=== PATIENT | female | born 1970 | race Caucasian/White ===

== ENCOUNTER 2020-01-21 20:19 | Emergency (ER) | payer MEDICAID ==
[~2020-01-21] VITALS: Ht 147.3 cm; Wt 49.9 kg
[2020-01-21 20:48] VITALS: BP 117/83
--- NOTE | 2020-01-21 20:49 | NUR ---
49 Y/O FEMALE PRESENTED TO ED C/O SORE THROAT AND SUBJECTIVE FEVER X 2 DAYS. PT DENIES CHEST PAIN, NAUSEA , DIARRHEA, SOB AND CHILLS. PT DENIES TAKING ANY MEDICATION FOR PAIN. PT STATES SHE JUST HURTS SWALLOWING. LUNG SOUNDS BL CLEAR. SKIN, PINK WARM AND DRY. A/O X4. PT IN TENT, NO ACUTE DISTRESS NOTED, VSS. ERMD MADE AWARE OF PT STATUS. PMH: DENIES AX: MORPHINE
[2020-01-21] MEDS ORDERED: PENICILLIN G BENZATHINE L-A 1.2 MU/2 ML SYR IM ONE (21:05)
--- NOTE | 2020-01-21 21:18 | NUR ---
COVID SWAB COLLECTED AND WALKED TO LAB.
[2020-01-21 21:48] VITALS: BP 117/83
--- NOTE | 2020-01-21 21:48 | NUR ---
Patient discharged with v/s stable. Written and verbal after care instructions given and explained. Patient alert, oriented and verbalized understanding of instructions. Ambulatory with steady gait. All questions addressed prior to discharge. ID band removed. Patient advised to follow up with PMD. Rx of TYLENOL & PENICILLIN given. Patient educated on indication of medication including possible reaction and side effects. Opportunity to ask questions provided and answered.
== END 2020-01-21 21:48 | disposition home or self-care (01) ==
LOC: MED 20:19
DX: J02.9 Acute pharyngitis, unspecified (principal); Z20.828 Contact with and (suspected) exposure to other viral communicable diseases; Z88.5 Allergy status to narcotic agent
CPT/HCPCS: 96372; 99283; J0561; U0003

== ENCOUNTER 2020-07-08 09:12 | Emergency (ER) | payer MEDICAID ==
[~2020-07-08] VITALS: Ht 149.9 cm; Wt 50.8 kg
[2020-07-08 09:15] VITALS: BP 127/61
[2020-07-08 10:02] VITALS: BP 127/61
== END 2020-07-08 10:00 | disposition home or self-care (01) ==
LOC: MED 09:12
DX: G44.209 Tension-type headache, unspecified, not intractable (principal); M54.2 Cervicalgia; M54.9 Dorsalgia, unspecified; Z88.5 Allergy status to narcotic agent
CPT/HCPCS: 99281

== ENCOUNTER 2020-08-11 18:50 | Emergency (ER) | payer MEDICAID ==
[~2020-08-11] VITALS: Ht 147.3 cm; Wt 50.8 kg
[~2020-08-11 18:50] MED LIST: ACET-8386 PO; CIPR500T4 PO; IBUP-2213 PO; ONDA8TAB87 PO
[2020-08-11 19:01] VITALS: BP 124/67
--- NOTE | 2020-08-11 19:11 | NUR ---
49 Y/O F BIB SON FROM HOME, PT STATES FOR 5 DAYS SHE HAS BEEN HAVING DIZZINESS, DOUBLE VISION, MUSCLE PAIN, PRESSURE IN THE CHEST, SOB, AND ABD PAIN. DENIES N/V/D and FEVER. PMH: ANEMIA MED: NAPROXEN (LAST DOSE 1700) ALLERGY: BEEF AND PORK (THROAT CLOSES), MORPHINE (THROAT CLOSES)
--- NOTE | 2020-08-11 19:18 | NUR ---
ERMD at bedside for examination
[2020-08-11] MEDS ORDERED: NACL 0.9% 1,000 ML IV SCH (19:40)
[2020-08-11 19:57] LABS: APPEARANCE,URINE CLEAR (CLEAR); BILIRUBIN,URINE NEGATIVE (NEGATIVE); BLOOD, URINE 3+ (NEGATIVE); COLOR,URINE YELLOW (YELLOW); LEUKOCYTE ESTERASE ,URINE 1+ (NEGATIVE); NITRITE, URINE NEGATIVE (NEGATIVE); PH,URINE 6.5 (5.0-9.0); UGLUCOSE NEGATIVE (NEGATIVE)
[2020-08-11 20:09] LABS: RBC,URINE 11-20 (MOD) /HPF (0-5)
[2020-08-11 20:10] LABS: WBC,URINE 0-5 /HPF (0-5)
[2020-08-11 20:13] LABS: ALBUMIN 4.2 g/dL (3.4-5.0); CARBON DIOXIDE 29.4 mmol/L (21-32); CREATININE 0.7 mg/dL (0.6-1.3); POTASSIUM 3.4 mmol/L (3.5-5.1); TOTAL BILIRUBIN 0.2 mg/dL (0.0-1.0)
--- NOTE | 2020-08-11 20:15 | NUR ---
Patient signed consent form for CT with contrast. ROLY Alvarez spoke with patient about procedure. Patient has no questions
[2020-08-11 20:16] LABS: BASOPHILS % (AUTO) 0.3 % (0.0-2.0); EOSINOPHILS # (AUTO) 0.1 K/uL (0-0.4); EOSINOPHILS % (AUTO) 1.1 % (0.0-4.0); HEMATOCRIT 33.9 % (36-48); HEMOGLOBIN 10.7 g/dL (12.0-16.0); MEAN CORPUSCULAR HEMOGLOBIN 23 pg (27-31); MEAN CORPUSCULAR HGB CONC 32 g/dL (33-37); MONOCYTES # (AUTO) 0.8 K/uL (0.8-1.0); MONOCYTES % (AUTO) 7.1 % (1.7-9.3); NEUTROPHILS # (AUTO) 6.9 K/uL (1.8-7.7); NEUTROPHILS % (AUTO) 63.5 % (42.2-75.2); PLATELET COUNT (AUTO) 517 K/uL (140-450); RED BLOOD CELL COUNT(AUTO) 4.58 MIL/uL (4.20-5.40); RED CELL DISTRIBUTION WIDTH 16.4 % (11.6-13.7); WHITE BLOOD COUNT (AUTO) 10.9 K/uL (4.8-10.8)
[2020-08-11 20:23] LABS: PROTHROMBIN TIME 9.6 secs (10.8-13.4)
[2020-08-11] MEDS ORDERED: PHENAZOPYRIDINE 100 MG TAB PO ONE (20:40)
--- NOTE | 2020-08-11 20:42 | NUR ---
PT TAKEN TO CT VIA WHEELCHAIR
[2020-08-11] MEDS ORDERED: cefTRIAXone 1,000 MG VIAL ONE (20:43)
--- NOTE | 2020-08-11 21:00 | NUR ---
pt back from CT. Patient hooked back onti the monitor
--- NOTE | 2020-08-11 22:05 | NUR ---
pt ambulated to the bathroom.
--- NOTE | 2020-08-11 22:07 | NUR ---
reconnected patient back onto the monitor
[2020-08-11] MEDS ORDERED: CEPH-588 PO (22:22)
[2020-08-11] MEDS ORDERED: PYR100 PO (22:22)
[2020-08-11] MEDS ORDERED: DICL1GEL19 TP (22:22)
[2020-08-11] MEDS ORDERED: ONDA-24 SL (22:22)
[2020-08-11] MEDS ORDERED: LID5T TP (22:22)
[2020-08-11 22:35] VITALS: BP 118/57
--- NOTE | 2020-08-11 22:35 | NUR ---
Patient discharged with v/s stable. Written and verbal after care instructions given and explained. Patient alert, oriented and verbalized understanding of instructions. Ambulatory with steady gait. All questions addressed prior to discharge. ID band removed. Patient advised to follow up with PMD. Rx of keflex, voltaren, lidoderm 5% patch, zofran odt, and pyridium given. Patient educated on indication of medication including possible reaction and side effects. Opportunity to ask questions provided and answered.
== END 2020-08-11 22:35 | disposition home or self-care (01) ==
LOC: MED 18:50
DX: M25.511 Pain in right shoulder (principal); M25.512 Pain in left shoulder; R07.9 Chest pain, unspecified; Z98.890 Other specified postprocedural states; Z88.5 Allergy status to narcotic agent; Z79.899 Other long term (current) drug therapy
CPT/HCPCS: 36415; 70450; 71275; 72125; 74177; 76705; 80053; 81001; 81025; 83690; 84484; 84703; 85025; 85610; 85730; 86886; 86900; 86901; 87086; 93005; 96365; 99285; J0696; J7030; Q9967

== ENCOUNTER 2020-11-03 01:14 | Emergency (ER) | payer MEDICAID ==
[~2020-11-03] VITALS: Ht 147.3 cm; Wt 52.8 kg
[~2020-11-03 01:14] MED LIST changes: +CEPH-588 PO; +DICL1GEL19 TP; +LID5T TP; +ONDA-24 SL; +PYR100 PO
[2020-11-03 01:15] VITALS: BP 128/79
--- NOTE | 2020-11-03 02:36 | NUR ---
PT AMBULATED TO BED 07
--- NOTE | 2020-11-03 02:45 | NUR ---
COVERING PRIMARY RN FOR LUNCH RELIEF. SEE COMPLETE ASSESSMENT
[2020-11-03] MEDS: IBUPROFEN 600 MG TAB PO ONE ×2 (02:48→02:51)
[2020-11-03] MEDS: METOCLOPRAMIDE 10 MG TAB PO ONE ×2 (02:49→02:51)
--- NOTE | 2020-11-03 02:50 | NUR ---
PT DECLINED MEDICATION AT BEDSIDE.
[2020-11-03] MEDS ORDERED: METO-485 PO (02:54)
[2020-11-03 03:08] VITALS: BP 128/79
--- NOTE | 2020-11-03 03:08 | NUR ---
Patient discharged with v/s stable. Written and verbal after care instructions given and explained. Patient alert, oriented and verbalized understanding of instructions. Ambulatory with steady gait. All questions addressed prior to discharge. ID band removed. Patient advised to follow up with PMD. Rx of REGLAN given. Patient educated on indication of medication including possible reaction and side effects. Opportunity to ask questions provided and answered.
== END 2020-11-03 03:08 | disposition home or self-care (01) ==
LOC: MED 01:14
DX: M79.7 Fibromyalgia (principal); G44.209 Tension-type headache, unspecified, not intractable; M54.2 Cervicalgia; Z88.5 Allergy status to narcotic agent; Z79.899 Other long term (current) drug therapy
CPT/HCPCS: 99283; J8597

== ENCOUNTER 2020-11-13 09:43 | Emergency (ER) | payer MEDICAID ==
[~2020-11-13] VITALS: Ht 152.4 cm; Wt 63.5 kg
[~2020-11-13 09:43] MED LIST changes: +METO-485 PO
[2020-11-13 09:50] VITALS: BP 121/68
--- NOTE | 2020-11-13 09:50 | NUR ---
PT BROUGHT TO BED 4 VIA [facility]
[2020-11-13] MEDS ORDERED: SODIUM CHLORIDE FLUSH 10 ML SYR IVF STA (10:00)
[2020-11-13] MEDS ORDERED: NITROGLYCERIN 0.4 MG TAB SL STA (10:00)
--- NOTE | 2020-11-13 10:07 | NUR ---
RAD AT BEDSIDE
--- NOTE | 2020-11-13 10:30 | NUR ---
50/F biba from with c/o chest pain. Per EMS, patient states she was driving and began experiencing sharp non radiating chest pain, stating she drove herself home and called 911. Patient states she was feeling episodes of shortness of breath and nausea, stating right now no chest pain, or shorntess of breath. Patient alert and oriented x4 answering questions appropriately, placed in gown on bedside radiology transporter. ERMD bedside.
[2020-11-13] MEDS ORDERED: LORazepam 0.5 MG TAB PO ONE (10:55)
[2020-11-13 11:12] LABS: BASOPHILS % (AUTO) 0.5 % (0.0-2.0); EOSINOPHILS % (AUTO) 0.4 % (0.0-4.0); HEMATOCRIT 39.6 % (36-48); HEMOGLOBIN 13.4 g/dL (12.0-16.0); LYMPHOCYTES # (AUTO) 1.6 K/uL (2.5-16.5); LYMPHOCYTES % (AUTO) 22.2 % (20.5-51.1); MEAN CORPUSCULAR HEMOGLOBIN 29 pg (27-31); MEAN CORPUSCULAR HGB CONC 34 g/dL (33-37); MEAN CORPUSCULAR VOLUME 85.1 fL (80-94); MONOCYTES # (AUTO) 0.3 K/uL (0.8-1.0); MONOCYTES % (AUTO) 4.3 % (1.7-9.3); NEUTROPHILS # (AUTO) 5.3 K/uL (1.8-7.7); NEUTROPHILS % (AUTO) 72.6 % (42.2-75.2); PLATELET COUNT (AUTO) 346 K/uL (140-450); RED BLOOD CELL COUNT(AUTO) 4.65 MIL/uL (4.20-5.40); RED CELL DISTRIBUTION WIDTH 16.8 % (11.6-13.7); WHITE BLOOD COUNT (AUTO) 7.3 K/uL (4.8-10.8)
[2020-11-13 11:24] LABS: ALBUMIN 3.9 g/dL (3.4-5.0); ANION GAP 11.3 (8-16); CARBON DIOXIDE 28.4 mmol/L (21-32); CREATININE 0.7 mg/dL (0.6-1.3); POTASSIUM 3.7 mmol/L (3.5-5.1); TOTAL BILIRUBIN 0.4 mg/dL (0.0-1.0)
--- NOTE | 2020-11-13 12:42 | NUR ---
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 VSS.
--- NOTE | 2020-11-13 13:50 | NUR ---
Patient discharged with v/s stable. Written and verbal after care instructions given and explained. Patient verbalized understanding. Ambulatory with steady gait. All questions addressed prior to discharge. Advised to follow up with PMD.
[2020-11-13 13:52] VITALS: BP 132/75
== END 2020-11-13 13:50 | disposition home or self-care (01) ==
LOC: MED 09:43
DX: R07.9 Chest pain, unspecified (principal); R06.00 Dyspnea, unspecified; Z88.5 Allergy status to narcotic agent; Z79.899 Other long term (current) drug therapy
CPT/HCPCS: 36415; 71045; 80053; 84484; 85025; 93005; 99285

== ENCOUNTER 2021-06-16 01:30 | Emergency (ER) | payer MEDICAID ==
[~2021-06-16] VITALS: Ht 147.3 cm; Wt 55.5 kg
[~2021-06-16 01:30] MED LIST changes: +ONDA-188 SL; -ONDA-24 SL
[2021-06-16 01:44] VITALS: BP 116/76
--- NOTE | 2021-06-16 02:02 | NUR ---
PT AMBULATED TO BED #6
--- NOTE | 2021-06-16 02:33 | NUR ---
SEEN AND EXAMINED BY ROLY WITH ORDERS AND CARRIED OUT.
[2021-06-16] MEDS ORDERED: CYCL-711 PO (02:37)
[2021-06-16] MEDS ORDERED: NAPR-54 PO (02:37)
[2021-06-16] MEDS ORDERED: KETOROLAC 30 MG/ML VIAL IM ONE (02:40)
--- NOTE | 2021-06-16 02:40 | NUR ---
REFUSES PAIN MEDICATION, ERMD NOTED , MAYBE LATER
--- NOTE | 2021-06-16 03:03 | NUR ---
SENT FOR XRAY VIA W/C WITH THE [facility].
--- NOTE | 2021-06-16 03:30 | NUR ---
RESULT BACK AND NOTED BY ERMD AND FOR D/C
[2021-06-16 03:40] VITALS: BP 121/79
--- NOTE | 2021-06-16 03:40 | NUR ---
Patient discharged with v/s stable. Written and verbal after care instructions given and explained. Patient alert, oriented and verbalized understanding of instructions. Ambulatory with steady gait. All questions addressed prior to discharge. ID band removed. Patient advised to follow up with PMD. Rx of NAPROSYN, FLEXERIL given. Patient educated on indication of medication including possible reaction and side effects. Opportunity to ask questions provided and answered.
== END 2021-06-16 03:40 | disposition home or self-care (01) ==
LOC: MED 01:30
DX: M54.50 Low back pain, unspecified (principal); Z88.5 Allergy status to narcotic agent; Z79.899 Other long term (current) drug therapy; Z98.890 Other specified postprocedural states
CPT/HCPCS: 72100; 93005; 99283; J1885

== ENCOUNTER 2021-08-07 06:27 | Emergency (ER) | payer MEDICAID ==
[~2021-08-07] VITALS: Ht 147.3 cm; Wt 54.4 kg
[~2021-08-07 06:27] MED LIST changes: +CYCL-711 PO; +NAPR-54 PO
[2021-08-07 06:34] VITALS: BP 105/65
[2021-08-07] MEDS ORDERED: ACETAMINOPHEN EXTRA STRENGTH 500 MG TAB PO ONE (06:45)
[2021-08-07] MEDS ORDERED: ONDANSETRON 4 MG ODT PO ONE (06:45)
[2021-08-07] MEDS ORDERED: DICYCLOMINE HCL LIQUID 20 MG, ALUMINUM HYD/MAG/SIMETHICONE 30 ML, LIDOCAINE VISCOUS 2% ... PO ONE ×3 (06:45)
--- NOTE | 2021-08-07 07:07 | NUR ---
CXR at bedside.
[2021-08-07] MEDS ORDERED: ALUMINUM HYD/MAG/SIMETHICONE 30 ML UDC ONE (07:35)
[2021-08-07] MEDS ORDERED: DICYCLOMINE HCL LIQUID 10 MG/5 ML UDC ONE (07:35)
[2021-08-07 07:38] LABS: BASOPHILS % (AUTO) 0.4 % (0.0-2.0); EOSINOPHILS # (AUTO) 0.1 K/uL (0-0.4); EOSINOPHILS % (AUTO) 1.8 % (0.0-4.0); HEMOGLOBIN 13.6 g/dL (12.0-16.0); LYMPHOCYTES # (AUTO) 2.6 K/uL (2.5-16.5); LYMPHOCYTES % (AUTO) 43.2 % (20.5-51.1); MEAN CORPUSCULAR HEMOGLOBIN 29 pg (27-31); MEAN CORPUSCULAR HGB CONC 34 g/dL (33-37); MONOCYTES # (AUTO) 0.4 K/uL (0.8-1.0); NEUTROPHILS # (AUTO) 2.9 K/uL (1.8-7.7); NEUTROPHILS % (AUTO) 48.6 % (42.2-75.2); PLATELET COUNT (AUTO) 290 K/uL (140-450); RED BLOOD CELL COUNT(AUTO) 4.65 MIL/uL (4.20-5.40); RED CELL DISTRIBUTION WIDTH 14.2 % (11.6-13.7); WHITE BLOOD COUNT (AUTO) 6.1 K/uL (4.8-10.8)
[2021-08-07] MEDS ORDERED: FAMO-90 PO (07:55)
[2021-08-07] MEDS ORDERED: NITR100C7 PO (07:55)
[2021-08-07] MEDS ORDERED: MAG355OR2 PO (07:55)
[2021-08-07 08:01] LABS: ALBUMIN 3.9 g/dL (3.4-5.0); ANION GAP 9.1 (8-16); ASPARTATE AMINOTRANSFERASE 24 U/L (15-37); CARBON DIOXIDE 28.3 mmol/L (21-32); CHLORIDE 105 mmol/L (98-107); CREATININE 0.6 mg/dL (0.6-1.3); GFR ARICAN-AMERICAN 135 mL/min (>90); GLUCOSE 95 mg/dL (74-106); LIPASE 279 U/L (73-393); POTASSIUM 4.4 mmol/L (3.5-5.1); SODIUM SERUM 138 mmol/L (136-145); TOTAL BILIRUBIN 0.3 mg/dL (0.0-1.0); UREA NITROGEN, BLOOD 17 mg/dL (7-18)
--- NOTE | 2021-08-07 08:05 | NUR ---
50 Y/O FEMALE BIB SELF C/O INTERMITTENT EPIGASTRICT PAIN WHICH RADIATES TO THE CHEST. PAIN RATED 6/10. PT STATES SHE HAS ALSO HAD INTERMITTENT NAUSEA. PT DENIES EXERTIONAL CHEST PAIN AND IS ABLE TO SPEAK IN COMPLETE SENTENCES. PT DENIES FEVER/CHILLS. DENIES SOB. PT DENIES TAKING ANY MEDICATIONS PRIOR TO ARRIVAL. BED LOCKED IN LOWEST POSITION, BED RAIL X1. PMH: DENIES NKA MEDS: DENIES
[2021-08-07 08:14] VITALS: BP 110/78
--- NOTE | 2021-08-07 08:15 | NUR ---
Patient discharged with v/s stable. Written and verbal after care instructions given and explained. Patient alert, oriented and verbalized understanding of instructions. Ambulatory with steady gait. All questions addressed prior to discharge. ID band removed. Patient advised to follow up with PMD. Rx of PEPCID, MAALOX MAXIMUM STRENGTH, MACROBID given. Patient educated on indication of medication including possible reaction and side effects. Opportunity to ask questions provided and answered.
== END 2021-08-07 08:13 | disposition home or self-care (01) ==
LOC: MED 06:27
DX: N39.0 Urinary tract infection, site not specified (principal); R07.9 Chest pain, unspecified; Z79.899 Other long term (current) drug therapy; Z79.2 Long term (current) use of antibiotics; Z79.1 Long term (current) use of non-steroidal anti-inflammatories (NSAID); Z79.891 Long term (current) use of opiate analgesic; Z88.5 Allergy status to narcotic agent; Z91.018 Allergy to other foods
CPT/HCPCS: 36415; 71045; 80053; 81002; 81025; 83690; 84484; 85025; 93005; 99285; Q0092; Q0162

== ENCOUNTER 2021-09-11 14:25 | Emergency (ER) | payer MEDICAID ==
[~2021-09-11] VITALS: Ht 147.3 cm; Wt 54.5 kg
[~2021-09-11 14:25] MED LIST changes: +FAMO-90 PO; +MAG355OR2 PO; +NITR100C7 PO
[2021-09-11 14:57] VITALS: BP 119/72
--- NOTE | 2021-09-11 15:45 | NUR ---
50 Y/O FEMALE C/O L RIB PAIN RADIATING TO CHEST, DIZZINESS AND FATIGUE THIS MORNING. DENIES ANYONE SICK AT HOME. +CHILLS. DENIES FEVER/N/V. PMH:DENIES ALLERGIES: MORPHINE, BEEF, PORK
[2021-09-11 16:56] LABS: BASOPHILS % (AUTO) 0.4 % (0.0-2.0); EOSINOPHILS # (AUTO) 0.1 K/uL (0-0.4); EOSINOPHILS % (AUTO) 1.6 % (0.0-4.0); HEMATOCRIT 40.7 % (36-48); HEMOGLOBIN 13.8 g/dL (12.0-16.0); LYMPHOCYTES % (AUTO) 32.4 % (20.5-51.1); MEAN CORPUSCULAR HEMOGLOBIN 30 pg (27-31); MEAN CORPUSCULAR HGB CONC 34 g/dL (33-37); MEAN CORPUSCULAR VOLUME 87.3 fL (80-94); MONOCYTES # (AUTO) 0.4 K/uL (0.8-1.0); MONOCYTES % (AUTO) 6.6 % (1.7-9.3); NEUTROPHILS # (AUTO) 3.6 K/uL (1.8-7.7); PLATELET COUNT (AUTO) 287 K/uL (140-450); RED BLOOD CELL COUNT(AUTO) 4.66 MIL/uL (4.20-5.40); RED CELL DISTRIBUTION WIDTH 14.4 % (11.6-13.7); WHITE BLOOD COUNT (AUTO) 6.1 K/uL (4.8-10.8)
[2021-09-11 17:13] LABS: ANION GAP 9.2 (8-16); CARBON DIOXIDE 30.1 mmol/L (21-32); CREATININE 0.8 mg/dL (0.6-1.3); POTASSIUM 4.3 mmol/L (3.5-5.1)
[2021-09-11 18:52] VITALS: BP 115/60
== END 2021-09-11 18:52 | disposition home or self-care (01) ==
LOC: MED 14:25
DX: R07.81 Pleurodynia (principal); R07.89 Other chest pain; Z88.5 Allergy status to narcotic agent
CPT/HCPCS: 36415; 71045; 80048; 81002; 81025; 84484; 85025; 93005; 99285; Q0092

== ENCOUNTER 2021-11-03 11:13 | Emergency (ER) | payer MEDICAID ==
--- NOTE | 2021-11-03 12:00 | NUR ---
PATIENT LEFT WITHOUT BEING SEEN BY DR. SCHAEFFER. NO FURTHER CARE PROVIDED FOR PATIENT.
--- NOTE | 2021-11-03 12:00 | NUR ---
FIRST ATTEMPT TO CALL PT BACK TO BE TRIAGED, NO RESPONSE.
--- NOTE | 2021-11-03 12:15 | NUR ---
SECOND ATTEMPT TO CALL PT BACK TO BE TRIAGED, NO RESPONSE.
--- NOTE | 2021-11-03 12:36 | NUR ---
THIRD ATTEMPT TO CALL PT BACK TO BE TRIAGED, NO RESPONSE.
[2021-11-04] MEDS ORDERED: ONDA-188 PO (11:08)
[2021-11-04] MEDS ORDERED: MECL-303 PO (11:08)
== END 2021-11-03 12:00 | disposition left against medical advice (07) ==
LOC: MED 11:13
DX: M79.10 Myalgia, unspecified site (principal); Z53.21 Procedure and treatment not carried out due to patient leaving prior to being seen by health care provider

== ENCOUNTER 2021-11-04 09:39 | Emergency (ER) | payer MEDICAID ==
[~2021-11-04] VITALS: Ht 147.3 cm; Wt 56.7 kg
[2021-11-04 09:49] VITALS: BP 131/76
--- NOTE | 2021-11-04 09:54 | NUR ---
Patient ambulated to bed 4 with steady gait.
--- NOTE | 2021-11-04 09:58 | NUR ---
Patient ambulated to restroom with steady gait.
--- NOTE | 2021-11-04 10:23 | NUR ---
51 y/o female bib self with c/o chest pressure x yesterday. Patient reports chest pain with a 7/10 pressure feeling. Denies SOB. Patient has not felt this before. Patient is also complaining of numbness from the back of her head to base of the neck x yesterday. Patient feels like there are ants crawling on her neck and head. Patient reports being dizzy. Patient denies being around anyone who is sick. Medical History:Denies ALLERGY: MORPHONE
--- NOTE | 2021-11-04 10:55 | NUR ---
Dr. Babin evaluating patient at bedside.
[2021-11-04] MEDS ORDERED: ONDA-188 PO (11:08)
[2021-11-04] MEDS ORDERED: MECL-303 PO (11:08)
[2021-11-04 11:36] VITALS: BP 97/65
--- NOTE | 2021-11-04 11:36 | NUR ---
Patient discharged with v/s stable. Written and verbal after care instructions given. Patient alert, oriented and verbalized understanding of instructions. Ambulatory with steady gait. All questions addressed prior to discharge. ID band removed. Patient advised to follow up with PMD. Rx of Meclizine and Zofran given. Opportunity to ask questions provided and answered.
--- NOTE | 2021-11-04 11:37 | NUR ---
The patient's care was reviewed and supervised by Malgorzata Martinez RN.
== END 2021-11-04 11:36 | disposition home or self-care (01) ==
LOC: MED 09:39
DX: R42 Dizziness and giddiness (principal); R51.9 Headache, unspecified; R06.02 Shortness of breath; Z88.5 Allergy status to narcotic agent; Z79.899 Other long term (current) drug therapy; Z98.890 Other specified postprocedural states
CPT/HCPCS: 81002; 81025; 93005; 99283

== ENCOUNTER 2021-11-18 13:18 | Emergency (ER) | payer MEDICAID ==
[~2021-11-18 13:18] MED LIST changes: +MECL-303 PO; +ONDA-188 PO
--- NOTE | 2021-11-18 13:37 | NUR ---
CALLED TO TRIAGE NO ANSWER
--- NOTE | 2021-11-18 13:51 | NUR ---
SECOND NO ANSWER TO TRIAGE
--- NOTE | 2021-11-18 14:08 | NUR ---
3RD NO ANSWER TO TRIAGE
--- NOTE | 2021-11-18 14:09 | NUR ---
PATIENT LEFT WITHOUT BEING SEEN BY DR. WATKINS. NO FURTHER CARE PROVIDED FOR PATIENT.
== END 2021-11-18 13:37 | disposition left against medical advice (07) ==
LOC: MED 13:18
DX: R51.9 Headache, unspecified (principal); Z53.21 Procedure and treatment not carried out due to patient leaving prior to being seen by health care provider

== ENCOUNTER 2022-01-01 15:01 | Emergency (ER) | payer MEDICAID ==
[~2022-01-01] VITALS: Ht 147.3 cm; Wt 70.3 kg
[2022-01-01 15:08] VITALS: BP 153/76
--- NOTE | 2022-01-01 15:15 | NUR ---
51/F WHEELCHAIR ASSISTED C/O CHEST PAIN RADIATING TO LEFT ARM ACCOMPANIED BY NAUSEA AND DIZZINESS. PT ALSO STATES ABD PAIN AND DIARRHEA ACCOMPANIED BY FEVER RECENTLY. PT STATES BEING EVALUATED AT [facility] ER AND WAS DC. AAO4, AMBULATORY, EKG DONE AT BEDSIDE AND READ BY DR HESTER. VITALS STABLE. IV ESTABLISHED TO RIGHT AC 20G. URINE COLLECTED. ALLERGY: MORPHINE PMH: DENIES
[2022-01-01] MEDS ORDERED: NACL 0.9% 1,000 ML IV ONE (15:25)
[2022-01-01 15:26] VITALS: BP 153/78
[2022-01-01] MEDS ORDERED: IBUP-2213 PO (15:31)
[2022-01-01] MEDS ORDERED: LOPE-289 PO (15:31)
[2022-01-01] MEDS: KETOROLAC 30 MG/ML VIAL IVP ONE ×2 (15:31→15:34)
[2022-01-01] MEDS: ONDANSETRON 4 MG/2 ML VIAL IVP ONE ×2 (15:31→15:34)
[2022-01-01] MEDS ORDERED: ONDA8TAB87 PO (15:31)
--- NOTE | 2022-01-01 15:34 | NUR ---
PT REFUSED TORADOL AND ZOFRAN IV. ERMD AWARE
[2022-01-01] MEDS ORDERED: CIPR500T4 PO (15:39)
--- NOTE | 2022-01-01 16:00 | NUR ---
Patient discharged with v/s stable. Written and verbal after care instructions given and explained. Patient verbalized understanding. Carried with steady gait. All questions addressed prior to discharge. Advised to follow up with PMD.
== END 2022-01-01 16:00 | disposition home or self-care (01) ==
LOC: MED 15:01
DX: N39.0 Urinary tract infection, site not specified (principal); R11.2 Nausea with vomiting, unspecified; R19.7 Diarrhea, unspecified; Z88.5 Allergy status to narcotic agent; Z79.899 Other long term (current) drug therapy; Z98.890 Other specified postprocedural states
CPT/HCPCS: 81002; 81025; 93005; 99283; J1885; J2405; J7030

== ENCOUNTER 2022-01-17 11:08 | Emergency (ER) | payer MEDICAID ==
[~2022-01-17] VITALS: Ht 143.5 cm; Wt 58.7 kg
[~2022-01-17 11:08] MED LIST changes: +LOPE-289 PO
[2022-01-17 11:15] VITALS: BP 136/92
--- NOTE | 2022-01-17 11:23 | NUR ---
PT AMB TO BED 6.
--- NOTE | 2022-01-17 11:55 | NUR ---
IV started, blood work obtained. Walked to lab.
--- NOTE | 2022-01-17 12:17 | NUR ---
51 y/o female bib self with c/o chest pain x today. Patient has pressure pain that radiates to her Left side of neck and left arm. Patient states her left arm is numb. Patient is dizzy. Denies any nausea, fever or vomiting. Denies taking medication for pain. Medical History: Denies ALLERGY: MORPHINE
[2022-01-17 12:23] LABS: BASOPHILS % (AUTO) 0.4 % (0.0-2.0); EOSINOPHILS % (AUTO) 0.3 % (0.0-4.0); HEMATOCRIT 43.1 % (36-48); HEMOGLOBIN 14.6 g/dL (12.0-16.0); LYMPHOCYTES # (AUTO) 1.5 K/uL (2.5-16.5); LYMPHOCYTES % (AUTO) 16.4 % (20.5-51.1); MEAN CORPUSCULAR HEMOGLOBIN 31 pg (27-31); MEAN CORPUSCULAR HGB CONC 34 g/dL (33-37); MEAN CORPUSCULAR VOLUME 89.6 fL (80-94); MONOCYTES # (AUTO) 0.3 K/uL (0.8-1.0); MONOCYTES % (AUTO) 2.8 % (1.7-9.3); NEUTROPHILS # (AUTO) 7.4 K/uL (1.8-7.7); NEUTROPHILS % (AUTO) 80.1 % (42.2-75.2); PLATELET COUNT (AUTO) 322 K/uL (140-450); RED BLOOD CELL COUNT(AUTO) 4.81 MIL/uL (4.20-5.40); RED CELL DISTRIBUTION WIDTH 13.2 % (11.6-13.7); WHITE BLOOD COUNT (AUTO) 9.2 K/uL (4.8-10.8)
[2022-01-17 12:32] LABS: ALBUMIN 3.7 g/dL (3.4-5.0); CARBON DIOXIDE 26.6 mmol/L (21-32); CREATININE 0.6 mg/dL (0.6-1.3); POTASSIUM 3.6 mmol/L (3.5-5.1); TOTAL BILIRUBIN 0.4 mg/dL (0.0-1.0)
--- NOTE | 2022-01-17 12:34 | NUR ---
X-Ray at bedside.
[2022-01-17 12:38] LABS: APPEARANCE,URINE CLEAR (CLEAR); BILIRUBIN,URINE NEGATIVE (NEGATIVE); BLOOD, URINE 3+ (NEGATIVE); COLOR,URINE YELLOW (YELLOW); LEUKOCYTE ESTERASE ,URINE TRACE (NEGATIVE); NITRITE, URINE NEGATIVE (NEGATIVE); PH,URINE 7.5 (5.0-9.0); UGLUCOSE NEGATIVE (NEGATIVE)
[2022-01-17 12:52] LABS: RBC,URINE 0-5 /HPF (0-5)
--- NOTE | 2022-01-17 12:57 | NUR ---
Dr. Rivas evaluating patient at bedside.
[2022-01-17] MEDS ORDERED: DICYCLOMINE HCL LIQUID 20 MG, ALUMINUM HYD/MAG/SIMETHICONE 30 ML, LIDOCAINE VISCOUS 2% ... PO ONE ×3 (13:05)
[2022-01-17] MEDS ORDERED: NACL 0.9% 1,000 ML IV ONE (13:05)
[2022-01-17] MEDS ORDERED: FAMOTIDINE 20 MG/2 ML VIAL IVP ONE (13:05)
[2022-01-17] MEDS ORDERED: ONDANSETRON 4 MG/2 ML VIAL IVP ONE (13:05)
[2022-01-17] MEDS ORDERED: ALUMINUM HYD/MAG/SIMETHICONE 30 ML UDC ONE (13:10)
[2022-01-17] MEDS ORDERED: DICYCLOMINE HCL LIQUID 10 MG/5 ML UDC ONE (13:11)
[2022-01-17] MEDS ORDERED: cephALEXin 500 MG CAP PO ONE (14:20)
[2022-01-17] MEDS ORDERED: MECL-303 PO (14:24)
[2022-01-17] MEDS ORDERED: CEPH-588 PO (14:24)
[2022-01-17] MEDS ORDERED: BEN10 PO (14:24)
[2022-01-17] MEDS ORDERED: ONDA-188 PO (14:24)
[2022-01-17] MEDS ORDERED: OMEP40EC23 PO (14:26)
--- NOTE | 2022-01-17 15:24 | NUR ---
Patient was offered a snack.
[2022-01-17] MEDS ORDERED: cephALEXin 500 MG CAP ONE (15:29)
[2022-01-17 16:00] VITALS: BP 103/68
--- NOTE | 2022-01-17 16:00 | NUR ---
Patient discharged with v/s stable. Written and verbal after care instructions given. Patient alert, oriented and verbalized understanding of instructions. Ambulatory with steady gait. All questions addressed prior to discharge. ID band removed. Patient advised to follow up with PMD. Rx of Bentyl, Keflex, Antivert, Prilosec and Zofran given. Opportunity to ask questions provided and answered.
--- NOTE | 2022-01-17 16:01 | NUR ---
Chart checked and completed. The patient's care was reviewed and supervised by Wilda Hough RN.
== END 2022-01-17 16:00 | disposition home or self-care (01) ==
LOC: MED 11:08
DX: K21.9 Gastro-esophageal reflux disease without esophagitis (principal); N39.0 Urinary tract infection, site not specified; H81.13 Benign paroxysmal vertigo, bilateral; Z88.5 Allergy status to narcotic agent; Z98.890 Other specified postprocedural states
CPT/HCPCS: 36415; 71045; 80053; 81001; 81025; 84484; 85025; 85379; 87086; 93005; 96360; 96361; 99285; J2405; J7030; Q0092; J3490

== ENCOUNTER 2022-01-28 09:59 | Emergency (ER) | payer MEDICAID ==
[~2022-01-28] VITALS: Ht 152.4 cm; Wt 60.8 kg
[~2022-01-28 09:59] MED LIST changes: +BEN10 PO; +OMEP40EC23 PO
--- NOTE | 2022-01-28 10:04 | NUR ---
Patient ambulated to bed 4 with steady gait.
[2022-01-28 10:05] VITALS: BP 137/84
[2022-01-28] MEDS ORDERED: DICYCLOMINE HCL LIQUID 20 MG, ALUMINUM HYD/MAG/SIMETHICONE 30 ML, LIDOCAINE VISCOUS 2% ... PO ONE ×3 (10:20)
[2022-01-28] MEDS ORDERED: DICYCLOMINE HCL LIQUID 10 MG/5 ML UDC ONE (10:22)
[2022-01-28] MEDS ORDERED: ALUMINUM HYD/MAG/SIMETHICONE 30 ML UDC ONE (10:22)
--- NOTE | 2022-01-28 10:25 | NUR ---
51 y/o female bib self, c/o epigastric burning radiates to mid chest and worsens with eating for 3 months. pt is also c/o dysuria and chills. pt denies vomiting, diarrhea, hematuria, fever, sore throat, cough, sob. a&ox4, french speaking, ambulates with steady gait. pmh: denies allergy: morphine, beef, pork med: denies
--- NOTE | 2022-01-28 10:34 | NUR ---
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
--- NOTE | 2022-01-28 10:34 | NUR ---
X-Ray at bedside.
[2022-01-28 10:59] LABS: APPEARANCE,URINE CLEAR (CLEAR); BILIRUBIN,URINE NEGATIVE (NEGATIVE); BLOOD, URINE TRACE-I (NEGATIVE); COLOR,URINE YELLOW (YELLOW); LEUKOCYTE ESTERASE ,URINE NEGATIVE (NEGATIVE); NITRITE, URINE NEGATIVE (NEGATIVE); PH,URINE 7.5 (5.0-9.0); UGLUCOSE NEGATIVE (NEGATIVE)
[2022-01-28 11:15] LABS: BASOPHILS % (AUTO) 0.4 % (0.0-2.0); EOSINOPHILS # (AUTO) 0.1 K/uL (0-0.4); EOSINOPHILS % (AUTO) 2.1 % (0.0-4.0); HEMATOCRIT 42.3 % (36-48); HEMOGLOBIN 14.4 g/dL (12.0-16.0); LYMPHOCYTES % (AUTO) 30.7 % (20.5-51.1); MEAN CORPUSCULAR HEMOGLOBIN 30 pg (27-31); MEAN CORPUSCULAR HGB CONC 34 g/dL (33-37); MONOCYTES # (AUTO) 0.4 K/uL (0.8-1.0); NEUTROPHILS % (AUTO) 60.8 % (42.2-75.2); PLATELET COUNT (AUTO) 277 K/uL (140-450); RED BLOOD CELL COUNT(AUTO) 4.75 MIL/uL (4.20-5.40); RED CELL DISTRIBUTION WIDTH 13.2 % (11.6-13.7); WHITE BLOOD COUNT (AUTO) 6.6 K/uL (4.8-10.8)
[2022-01-28 11:20] LABS: WBC,URINE 0-5 /HPF (0-5)
[2022-01-28 11:25] LABS: ALBUMIN 3.7 g/dL (3.4-5.0); ANION GAP 9.3 (8-16); ASPARTATE AMINOTRANSFERASE 26 U/L (15-37); CARBON DIOXIDE 31.8 mmol/L (21-32); CHLORIDE 103 mmol/L (98-107); CREATININE 0.6 mg/dL (0.6-1.3); GFR ARICAN-AMERICAN 134 mL/min (>90); GLUCOSE 115 mg/dL (74-106); LIPASE 246 U/L (73-393); POTASSIUM 4.1 mmol/L (3.5-5.1); SODIUM SERUM 140 mmol/L (136-145); TOTAL BILIRUBIN 0.2 mg/dL (0.0-1.0); UREA NITROGEN, BLOOD 13 mg/dL (7-18)
[2022-01-28] MEDS ORDERED: FAMO-92 PO (11:36)
[2022-01-28] MEDS ORDERED: SIME125T38 PO (11:36)
[2022-01-28 12:23] VITALS: BP 123/74
--- NOTE | 2022-01-28 12:23 | NUR ---
Patient discharged with v/s stable. Written and verbal after care instructions given and explained. Patient alert, oriented and verbalized understanding of instructions. Ambulatory with steady gait. All questions addressed prior to discharge. ID band removed. Patient advised to follow up with PMD. Rx of famotidine, mylanta (sent) given. Patient educated on indication of medication including possible reaction and side effects. Opportunity to ask questions provided and answered. copy of labs and work note given
== END 2022-01-28 12:23 | disposition home or self-care (01) ==
LOC: MED 09:59
DX: K29.70 Gastritis, unspecified, without bleeding (principal); Z88.5 Allergy status to narcotic agent
CPT/HCPCS: 36415; 71045; 80053; 81001; 81025; 83690; 84484; 85025; 87086; 93005; 99285

== ENCOUNTER 2022-02-05 16:43 | Emergency (ER) | payer MEDICAID ==
[~2022-02-05] VITALS: Ht 142.2 cm; Wt 59.4 kg
[~2022-02-05 16:43] MED LIST changes: +FAMO-92 PO; +SIME125T38 PO
[2022-02-05 16:50] VITALS: BP 147/47
--- NOTE | 2022-02-05 17:00 | NUR ---
PT AMBULATED TO BED. PLACED IN GOWN AND MONITOR.
--- NOTE | 2022-02-05 17:10 | NUR ---
51/F WALKED IN C/O CHEST PAIN RADIATING TO BACK AND RIGHT ARM ONSET 1 HR . DENIES DIZZINESS OR SYNCOPE. 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 ALLERGY: MORPHINE PMH: DENIES
--- NOTE | 2022-02-05 17:30 | NUR ---
BLOOD DRAWN AND SENT TO LAB
--- NOTE | 2022-02-05 17:36 | NUR ---
IV ESTABLISHED TO RIGHT AC WITH 20G.
[2022-02-05] MEDS ORDERED: ALUMINUM HYD/MAG/SIMETHICONE 30 ML UDC PO ONE (17:50)
[2022-02-05] MEDS ORDERED: NACL 0.9% 1,000 ML IV ONE (17:50)
[2022-02-05] MEDS ORDERED: FAMOTIDINE 20 MG/2 ML VIAL IVP ONE (17:50)
[2022-02-05 17:55] LABS: BASOPHILS # (AUTO) 0.1 K/uL (0.00-0.22); BASOPHILS % (AUTO) 0.5 % (0.0-2.0); EOSINOPHILS # (AUTO) 0.2 K/uL (0-0.4); EOSINOPHILS % (AUTO) 1.6 % (0.0-4.0); HEMATOCRIT 38.9 % (36-48); HEMOGLOBIN 13.5 g/dL (12.0-16.0); LYMPHOCYTES # (AUTO) 3.7 K/uL (2.5-16.5); LYMPHOCYTES % (AUTO) 28.9 % (20.5-51.1); MEAN CORPUSCULAR HEMOGLOBIN 30 pg (27-31); MEAN CORPUSCULAR HGB CONC 35 g/dL (33-37); MEAN CORPUSCULAR VOLUME 87.4 fL (80-94); MONOCYTES # (AUTO) 0.7 K/uL (0.8-1.0); MONOCYTES % (AUTO) 5.7 % (1.7-9.3); NEUTROPHILS % (AUTO) 63.3 % (42.2-75.2); PLATELET COUNT (AUTO) 335 K/uL (140-450); RED BLOOD CELL COUNT(AUTO) 4.46 MIL/uL (4.20-5.40); RED CELL DISTRIBUTION WIDTH 12.7 % (11.6-13.7); WHITE BLOOD COUNT (AUTO) 12.6 K/uL (4.8-10.8)
[2022-02-05 18:13] LABS: ALBUMIN 3.6 g/dL (3.4-5.0); ANION GAP 12.5 (8-16); CREATININE 0.8 mg/dL (0.6-1.3); POTASSIUM 3.5 mmol/L (3.5-5.1); TOTAL BILIRUBIN 0.2 mg/dL (0.0-1.0)
--- NOTE | 2022-02-05 18:30 | NUR ---
PT REFUSED PEPCID IV, STATING SHE DOES NOT WISH TO TAKE ANY MORE MEDS D/T PAIN GETTING BETTER. NEALD MADE AWARE
--- NOTE | 2022-02-05 19:46 | NUR ---
Patient felt dizziness , Dr. Mendoza notified.
[2022-02-05] MEDS ORDERED: SUCR1TAB35 PO (20:54)
[2022-02-05] MEDS ORDERED: FAMO-90 PO (20:54)
[2022-02-05 21:33] VITALS: BP 137/77
--- NOTE | 2022-02-05 21:33 | NUR ---
Patient discharged with v/s stable. Written and verbal after care instructions given and explained. Patient alert, oriented and verbalized understanding of instructions. Ambulatory with steady gait. All questions addressed prior to discharge. ID band removed. Patient advised to follow up with PMD. Rx of Pepcid and Carafate given. Patient educated on indication of medication including possible reaction and side effects. Opportunity to ask questions provided and answered.
== END 2022-02-05 21:33 | disposition home or self-care (01) ==
LOC: MED 16:43
DX: R07.89 Other chest pain (principal); R10.9 Unspecified abdominal pain; R42 Dizziness and giddiness; R06.02 Shortness of breath; Z88.5 Allergy status to narcotic agent; Z79.899 Other long term (current) drug therapy
CPT/HCPCS: 36415; 71045; 74176; 80053; 83880; 84484; 85025; 93005; 96360; 99285; J3490; Q0092

== ENCOUNTER 2022-05-16 16:11 | Emergency (ER) | payer MEDICAID ==
[~2022-05-16] VITALS: Ht 147.3 cm; Wt 58.1 kg
[~2022-05-16 16:11] MED LIST changes: -ACET-8386 PO; +ACET-8905 PO; +SUCR1TAB35 PO
[2022-05-16 16:17] VITALS: BP 138/82
--- NOTE | 2022-05-16 16:45 | NUR ---
a/o times 4, nad, chest pain 6/10, nsr on cm, o2 sat 98% ra, sr up times 2, has vesicles right side of chest
[2022-05-16 17:01] LABS: BASOPHILS # (AUTO) 0.1 K/uL (0.00-0.22); BASOPHILS % (AUTO) 0.7 % (0.0-2.0); EOSINOPHILS # (AUTO) 0.1 K/uL (0-0.4); EOSINOPHILS % (AUTO) 1.3 % (0.0-4.0); HEMATOCRIT 42.2 % (36-48); HEMOGLOBIN 14.5 g/dL (12.0-16.0); LYMPHOCYTES # (AUTO) 3.5 K/uL (2.5-16.5); LYMPHOCYTES % (AUTO) 34.9 % (20.5-51.1); MEAN CORPUSCULAR HEMOGLOBIN 30 pg (27-31); MEAN CORPUSCULAR HGB CONC 34 g/dL (33-37); MEAN CORPUSCULAR VOLUME 87.8 fL (80-94); MONOCYTES # (AUTO) 0.6 K/uL (0.8-1.0); MONOCYTES % (AUTO) 5.9 % (1.7-9.3); NEUTROPHILS # (AUTO) 5.7 K/uL (1.8-7.7); NEUTROPHILS % (AUTO) 57.2 % (42.2-75.2); PLATELET COUNT (AUTO) 335 K/uL (140-450); RED BLOOD CELL COUNT(AUTO) 4.81 MIL/uL (4.20-5.40); RED CELL DISTRIBUTION WIDTH 12.8 % (11.6-13.7)
[2022-05-16 17:09] LABS: ALBUMIN 4.3 g/dL (3.4-5.0); CARBON DIOXIDE 28.8 mmol/L (21-32); CREATININE 0.6 mg/dL (0.6-1.3); POTASSIUM 3.8 mmol/L (3.5-5.1); TOTAL BILIRUBIN 0.3 mg/dL (0.0-1.0)
[2022-05-16 17:11] LABS: PROTHROMBIN TIME 9.8 secs (10.8-13.4)
[2022-05-16 17:27] LABS: D-DIMER < 100 ng/ml (0-400)
--- NOTE | 2022-05-16 18:05 | NUR ---
a/o times 4, nad, cp 3/10, nsr on cm, o2 sat 98% ra, sr up times 2
--- NOTE | 2022-05-16 19:35 | NUR ---
RECEIVED PT IN BED 9. PT RESTING IN BED AWAITING TEST RESULTS AND FURTHER ORDERS.
--- NOTE | 2022-05-16 19:53 | NUR ---
TROP RESULTS CAME BACK, DR PENA INFORMED OF THE RESULTS, DR. PENA STATED PT OK TO BE DISCHARGED.
[2022-05-16 20:10] VITALS: BP 127/66
--- NOTE | 2022-05-16 20:10 | NUR ---
PT DISCHARGED AT 2009, PT IV REMOVED AND D/C PAPERS GIVEN TO PT. PT INFORMED TO FOLLOW UP AT [facility] WITHIN 3 DAYS. PT VERBALIZED UNDERSTANDING. PT PICKING UP PT AND TAKING HER HOME.
== END 2022-05-16 20:10 | disposition home or self-care (01) ==
LOC: MED 16:11
DX: R07.9 Chest pain, unspecified (principal); Z88.5 Allergy status to narcotic agent; Z79.899 Other long term (current) drug therapy
CPT/HCPCS: 36415; 71045; 80053; 83880; 84484; 85025; 85379; 85610; 85730; 99285; Q0092

== ENCOUNTER 2022-06-17 17:54 | Emergency (ER) | payer MEDICAID ==
[~2022-06-17] VITALS: Ht 142.2 cm; Wt 45.4 kg
[2022-06-17 18:00] VITALS: BP 133/85
[2022-06-17] MEDS ORDERED: PANTOPRAZOLE 40 MG INJ VIAL IVP ONE (18:15)
[2022-06-17] MEDS ORDERED: NACL 0.9% 1,000 ML IV ONE (18:15)
[2022-06-17] MEDS ORDERED: KETOROLAC 15 MG/ML VIAL IVP ONE (18:15)
[2022-06-17 18:31] LABS: BASOPHILS % (AUTO) 0.3 % (0.0-2.0); EOSINOPHILS # (AUTO) 0.1 K/uL (0-0.4); EOSINOPHILS % (AUTO) 0.9 % (0.0-4.0); HEMOGLOBIN 14.4 g/dL (12.0-16.0); LYMPHOCYTES # (AUTO) 3.4 K/uL (2.5-16.5); LYMPHOCYTES % (AUTO) 34.9 % (20.5-51.1); MEAN CORPUSCULAR HEMOGLOBIN 30 pg (27-31); MEAN CORPUSCULAR HGB CONC 34 g/dL (33-37); MEAN CORPUSCULAR VOLUME 86.9 fL (80-94); MONOCYTES # (AUTO) 0.5 K/uL (0.8-1.0); MONOCYTES % (AUTO) 5.3 % (1.7-9.3); NEUTROPHILS # (AUTO) 5.8 K/uL (1.8-7.7); NEUTROPHILS % (AUTO) 58.6 % (42.2-75.2); PLATELET COUNT (AUTO) 373 K/uL (140-450); RED BLOOD CELL COUNT(AUTO) 4.83 MIL/uL (4.20-5.40); RED CELL DISTRIBUTION WIDTH 13.9 % (11.6-13.7); WHITE BLOOD COUNT (AUTO) 9.8 K/uL (4.8-10.8)
[2022-06-17 18:47] LABS: ALBUMIN 4.1 g/dL (3.4-5.0); ANION GAP 12.4 (8-16); ASPARTATE AMINOTRANSFERASE 20 U/L (15-37); CARBON DIOXIDE 28.4 mmol/L (21-32); CHLORIDE 101 mmol/L (98-107); CREATININE 0.9 mg/dL (0.6-1.3); GFR ARICAN-AMERICAN 84 mL/min (>90); GLUCOSE 138 mg/dL (74-106); LIPASE 249 U/L (73-393); POTASSIUM 3.8 mmol/L (3.5-5.1); SODIUM SERUM 138 mmol/L (136-145); TOTAL BILIRUBIN 0.3 mg/dL (0.0-1.0); UREA NITROGEN, BLOOD 22 mg/dL (7-18)
--- NOTE | 2022-06-17 18:55 | NUR ---
washer and capper machine operator #[id number] for assessment 51 y/o F BIB self from home c/o mid abdominal pain with nausea, chills, headache x 5 days, blurry vision x 3 weeks. Patient A&Ox4, ambulatory, also reports abdominal pain, chest pain, left ear pain causing dizziness. Left ear pain x 1 month causing dizziness. States mid abdomen pain x 5 days 5/10, pressure/intermittent, radiating to right rib, left-sided chest. States left-sided chest pain 6/10, pressure/intermittent, radiating to upper back. Patient reports chest pressure causing SOB and confusion. Denies vomiting, diarrhea, constipation, fever, chills, dysuria. campus monitor in place. Scheduled PCP for physical exam 06/23/2022. Last BM: this morning. Bed locked in lowest position, side rails x 1. PMH: denies Meds: denies Allergies: morphine Sx:
--- NOTE | 2022-06-17 19:03 | NUR ---
Per generator man #[id number], Madelin, patient refusing IV insertion, NS BOLUS, Protonix, Toradol due to receiving dizziness side effect. Dr. Amaya made aware.
[2022-06-17] MEDS ORDERED: IBUPROFEN 600 MG TAB PO ONE (19:15)
[2022-06-17] MEDS ORDERED: ALUMINUM HYD/MAG/SIMETHICONE 30 ML UDC PO ONE (19:15)
--- NOTE | 2022-06-17 19:30 | NUR ---
Report and transfer of care given to SANDRA [place].
[2022-06-17] MEDS ORDERED: PANT40EC PO (19:54)
[2022-06-17 20:21] VITALS: BP 125/85
--- NOTE | 2022-06-17 20:21 | NUR ---
Patient discharged with v/s stable. Written and verbal after care instructions given and explained via automotive collision estimator #[id number]. Patient alert, oriented and verbalized understanding of instructions. Ambulatory with steady gait. All questions addressed prior to discharge. ID band removed. Patient advised to follow up with PMD. Rx of Pantoprazole given. Patient educated on indication of medication including possible reaction and side effects. Opportunity to ask questions provided and answered.
== END 2022-06-17 20:21 | disposition home or self-care (01) ==
LOC: MED 17:54
DX: R10.13 Epigastric pain (principal); R11.2 Nausea with vomiting, unspecified; Z79.2 Long term (current) use of antibiotics; Z79.1 Long term (current) use of non-steroidal anti-inflammatories (NSAID); Z79.891 Long term (current) use of opiate analgesic; Z79.899 Other long term (current) drug therapy; Z88.5 Allergy status to narcotic agent; Z91.030 Bee allergy status; Z91.018 Allergy to other foods
CPT/HCPCS: 36415; 71045; 80053; 83690; 84484; 85025; 93005; 99285; Q0092; C9113; J1885